=== PATIENT | male | born 1945 | race Caucasian/White ===

== ENCOUNTER 2017-05-10 11:02 | Day surgery (SDC) | payer OTHER ==
--- NOTE | 2017-05-10 11:19 | EDPHY ---
H & P Stated Complaint: cut finger with table saw Time Seen by Provider: 05/10/17 11:19 HPI/ROS: CHIEF COMPLAINT: Table saw injury right hand HISTORY OF PRESENT ILLNESS: The patient presents to the ED after table saw injury to his right hand. The patient experienced lacerations to his right index, 3rd and 4th fingers. The patient presents complaining of fairly severe pain. The patient has varying degrees of soft tissue injury. The patient denies any acute numbness. He reports his tetanus shot is up-to-date. REVIEW OF SYSTEMS: A comprehensive 10 point review of systems is otherwise negative aside from elements mentioned in the history of present illness. Source: Patient Exam Limitations: No limitations - Personal History Current Tetanus/Diphtheria Vaccine: Yes Current Tetanus Diphtheria and Acellular Pertussis (TDAP): Yes - Medical/Surgical History Hx Asthma: No Hx Chronic Respiratory Disease: No Hx Diabetes: No Hx Cardiac Disease: No Hx Renal Disease: No Hx Cirrhosis: No Hx Alcoholism: No Hx HIV/AIDS: No Hx Splenectomy or Spleen Trauma: No Other PMH: Past medical history: Noncontributory - Social History Smoking Status: Never smoked - Physical Exam Exam: General Appearance: Alert, no distress Head: Atraumatic Eyes: Pupils equal, round, reactive Neck: Nontender, trachea midline Respiratory: No chest wall tender, subcutaneous air, lungs clear bilaterally Cardiovascular: Regular rate and rhythm Abdomen: Abdomen is soft and nontender, pelvis stable Skin: No lacerations, No abrasion Back: No midline T/L/S pain Right hand: Various lacerations noted to the distal right 2nd 3rd and 4th fingers. Sensation was intact to light touch upon arrival. Normal capillary refill. The most extensive laceration soft tissue injuries to the 2nd finger. It is an oblique laceration down to the level of the D IP. The laceration is primarily on the volar surface of the finger but does extend onto the palmar surface. The lacerations of the 3rd and 4th fingers are also oblique in nature primarily on the volar surface of the finger. I am unable to fully flexion and extension at the digit secondary to the soft tissue injury. Constitutional: Initial Vital Signs Temperature (C) 36.5 C 05/10/17 11:04 Heart Rate 56 L 05/10/17 11:04 Respiratory Rate 16 05/10/17 11:04 Blood Pressure 153/79 H 05/10/17 11:04 O2 Sat (%) 96 05/10/17 11:04 O2 Delivery Mode Room Air Allergies/Adverse Reactions: No Known Allergies Allergy (Unverified 05/10/17 11:07) Medical Decision Making - Diagnostics EKG Interpretation: EKG: Complete interpretation has been separately recorded in the [facility] archive. Summary impression: Sinus rhythm, rate 55 Imaging Results: Imaging Impressions Hand X-Ray 05/10/17 11:25 Impression: Comminuted fractures and soft tissue injury involving the distal phalanges of the second, third, and fourth digits. ED Course/Re-evaluation: Patient presents to the ED with lacerations to his right 2nd 3rd and 4th fingers. Most extensive laceration is to the 2nd finger with fairly significant soft tissue loss. The patient denies additional complaints. His tetanus shot is up-to-date. The patient reported moderate to severe pain upon arrival. The patient did experience a vasovagal episode secondary to his pain. He had an IV established. He was placed on a playground monitor. I digitally blocked the patient's finger lacerations. He was taken for an x-ray which demonstrates fractures of the 2nd 3rd and 4th distal phalanxes. Consultation is made with Dr. Chiang who is on-call for Hand surgery. Given the complicated laceration/soft tissue loss involving the 2nd finger he will be taken to the operating room. Lacerations and fractures noted to the 3rd and 4th fingers which are open. The patient received 1 g of IV Ancef. He was kept npo. The patient is taken to the operating room for washout and debridement. Differential Diagnosis: Differential diagnosis considered includes open fracture, neurovascular injury, tendon laceration - Data Points Medications Given: Discontinued Medications Sodium Chloride (Ns) 1,000 mls @ 0 mls/hr IV EDNOW ONE; Wide Open PRN Reason: Protocol Stop: 05/10/17 11:27 Last Admin: 05/10/17 11:40 Dose: 1,000 mls Departure - Departure Disposition: To OP Cath/Surgery Clinical Impression: Fracture of phalanx,multiple sites, right hand, open, Vasovagal syncope Condition: Good
[2017-05-10] MEDS ORDERED: NS 1,000 ML IV ONE (11:26)
--- NOTE | 2017-05-10 11:36 | CPEKG ---
Heart Rate: 55 RR Interval: 1091 P-R Interval: 212 QRSD Interval: 114 QT Interval: 408 QTC Interval: 391 P [place]: 27 QRS [place]: 15 T Wave [place]: -2 EKG Severity - ABNORMAL ECG - EKG Impression: SINUS RHYTHM Electronically Signed By: Alexis Samson 10-May-2017 13:20:33
[2017-05-10] MEDS ORDERED: CEFAZOLIN 1 GM/DEXTROSE/50 ML BAG IV ONE ×2 (13:04→13:27)
[2017-05-10] MEDS ORDERED: BUPIVACAINE 0.25% 30 ML SDV ONE (13:12)
[2017-05-10] MEDS ORDERED: BACITRACIN 50,000 UNITS/10 ML SYR IRR ONE (13:16)
[2017-05-10] MEDS ORDERED: POLYMYXIN B SULFATE 500,000 UNIT/10 ML SYR IRR ONE (13:16)
[2017-05-10] MEDS ORDERED: MIDAZOLAM 2 MG/2 ML VIAL IVP ONE (13:20)
--- NOTE | 2017-05-10 13:20 | PDANEPAE ---
ANE History of Present Illness 71 yo for exploration s/p table saw injury ANE Past Medical History - Cardiovascular History Hx Hypertension: No Hx Arrhythmias: No Hx Chest Pain: No Hx Coronary Artery / Peripheral Vascular Disease: No Hx CHF / Valvular Disease: No Hx Palpitations: No - Pulmonary History Hx COPD: No Hx Asthma/Reactive Airway Disease: No Hx Recent Upper Respiratory Infection: No Hx Oxygen in Use at Home: No Hx Sleep Apnea: No - Endocrine History Hx Diabetes: No ANE Review of Systems Review of systems is: negative - Exercise capacity METS (RN): 4 METS ANE Patient History - Allergies Allergies/Adverse Reactions: No Known Allergies Allergy (Unverified 05/10/17 11:07) - NPO status NPO Since - Liquids (Date): 05/10/17 NPO Since - Liquids (Time): 07:00 NPO Since - Solids (Date): 05/10/17 NPO Since - Solids (Time): 10:00 - Smoking Hx Smoking Status: Never smoked ANE Labs/Vital Signs - Vital Signs Blood Pressure: 156/83 Heart Rate: 56 Respiratory Rate: 16 O2 Sat (%): 97 Height: 5 ft 7 in Weight: 79.379 kg ANE Physical Exam - Airway Neck exam: FROM Mallampati Score: Class 2 Mouth exam: normal dental/mouth exam - Pulmonary Pulmonary: no respiratory distress - Cardiovascular Cardiovascular: regular rate and rhythym - ASA Status ASA Status: I, E ANE Anesthesia Plan Anesthesia Plan: general endotracheal anesthesia
[2017-05-10] MEDS ORDERED: fentaNYL 100 MCG/2 ML INJ ONE ×2 (13:24→14:52)
[2017-05-10] MEDS ORDERED: PROPOFOL/EMULSION 500 MG/50 ML BOTTLE IV ONE (13:24)
[2017-05-10] MEDS ORDERED: ROCURONIUM 50 MG/5 ML VIAL ONE (13:25)
[2017-05-10] MEDS ORDERED: MIDAZOLAM 2 MG/2 ML VIAL ONE (13:26)
[2017-05-10] MEDS ORDERED: CEFAZOLIN 2 GM/DEXTROSE/100 ML BAG IV ONE (13:31)
[2017-05-10] MEDS ORDERED: ceFAZolin 1 GM/5 ML SYR ONE ×2 (13:37→14:36)
--- NOTE | 2017-05-10 13:56 | GHP ---
[f rep st] HISTORY AND PHYSICAL DATE OF ADMISSION: 05/10/2017 PREOPERATIVE DIAGNOSIS: Left 2nd, 3rd and 4th finger injuries with open fractures distal phalanges, nail matrix injuries, macerated lacerations. HISTORY OF PRESENT ILLNESS: Patient is a 71-year-old gentleman who was working with a table saw thi s morning. He was reaching for a piece of wood and somehow engaged the saw. The injuries were ruby re enough to have him come into the emergency room. Radiographs there showed open fractures of the 2nd, 3rd, 4th distal phalanges, all of which were somewhat comminuted and disorganized. The dorsal lacerations penetrated the nail matrices of all fingers. The 4th finger nail matrix injury was the most severe and most likely will have to be totally removed. The patient has some numbness over the tip of the radial border of the 2nd and 3rd fingers. ALLERGIES: None. MEDS: None. REVIEW OF SYSTEMS: Negative. PREVIOUS SURGERY: None. PHYSICAL EXAM: GENERAL: The patient alert, oriented, cooperative with exam. CHEST: Clear to ausc ultation. CARDIAC EXAMINATION: Regular rate and rhythm. ABDOMINAL EXAM: Nontender. Normal bowel sounds. EXTREMITIES: Capillary refill decreased in the 4th fingertip. Present in the 2nd and 3rd . Dorsal lacerations are noted through the nail matrices of all 3 fingers. ASSESSMENT: 2nd, 3rd, and 4th fingertip macerated lacerations with open fractures and nail matrix i njuries. PLAN: Patient will be taken to the operating room for repair of 2nd, 3rd and 4th fingertip injuries with debridement open fractures. Probable shortening, possible amputation of the 4th finger. [place] of nails and repair of nail matrices. The patient may require stabilization with K-wires. /[id number]/MODL
[2017-05-10] MEDS ORDERED: SUGAMMADEX SODIUM 200 MG/2 ML VIAL IVP ONE (14:50)
[2017-05-10] MEDS ORDERED: ONDANSETRON 4 MG/2 ML VIAL IVP PRN (15:06)
[2017-05-10] MEDS ORDERED: fentaNYL 100 MCG/2 ML INJ IVP PRN (15:06)
[2017-05-10] MEDS ORDERED: NALOXONE HCL 0.4 MG/ML INJ IVP PRN (15:06)
--- NOTE | 2017-05-10 15:42 | POSTANESTH ---
Post Anesthetic Evaluation Cardiovascular Status: Normal, Stable Respiratory Status: Tx Decrease in SpO2 Level of Consciousness/Mental Status: Mildly Sleepy, Arousable Pain Control: Adequate, Prn Tx Ordered Nausea/Vomiting Control: Adequate, Prn Tx Ordered Complications Possibly Related to Anesthesia: None Noted
[2017-05-10 18:14] VITALS: BP 148/91; PULSE 68; RESP 16; TEMP 98.2; O2SAT 93
--- NOTE | 2017-05-10 23:38 | GOP ---
[f rep st] OPERATIVE REPORT DATE OF OPERATION: 05/10/2017 SURGEON: Agusto Chiang MD ANESTHESIA: General. PREOPERATIVE DIAGNOSIS: 1. Partial amputation, left 4th finger. 2. Open fractures, left 2nd, 3rd, 4th finger distal phalanges. 3. Nail matrix injury, left 2nd, 3rd, and 4th fingers. 4. Complex lacerations, left 2nd, 3rd, 4th fingers. POSTOPERATIVE DIAGNOSIS: 1. Partial amputation, left 4th finger. 2. Open fractures, left 2nd, 3rd, 4th finger distal phalanges. 3. Nail matrix injury, left 2nd, 3rd, and 4th fingers. 4. Complex lacerations, left 2nd, 3rd, 4th fingers. PROCEDURE PERFORMED: 1. Partial amputation distal phalanx, left 4th finger. 2. Repair nail matrix, left 4th finger. 3. Repair nail matrix, left 3rd finger. 4. Repair nail matrix, left 2nd finger. 5. Debridement open fractures, left 2nd finger. 6. Debridement open fracture, left 3rd finger. 7. Debridement open fracture, left 4th finger. 8. Pinning distal phalangeal fracture, left 3rd finger. 9. Pinning distal phalangeal fractures, left 2nd finger. FINDINGS: DESCRIPTION OF PROCEDURE: Patient was taken to the operating room, administered general anesthesia. Placed in the supine position. The left upper extremity was prepped and draped in normal sterile fashion. Our attention was directed to the 4th finger, which had a complex open fracture. There wa s a partial amputation with bone loss of distal phalanx. There was a nail matrix injury. The macer ated skin edges were debrided. The open fracture was debrided and thoroughly lavaged. The remainin g nail matrix was then reapproximated with 6-0 Vicryl suture. The complex laceration was then reapp roximated with 5-0 nylon suture. The 3rd finger was then addressed. This had a complex saw blade laceration through the dorsum of th e finger and had partial missing bone. The bone was thoroughly debrided. The remaining nail was re moved. The nail matrix was macerated but still repairable. This was performed with a series of 6-0 Vicryl sutures. The eponychial folds were reapproximated with 5-0 nylon. The complex laceration w as reapproximated with a 5-0 nylon. The remaining fracture fragments were stabilized with a pin kiara lenard through the distal phalanx into the middle phalanx. The left 2nd finger was then addressed. The nail was removed. The complex laceration was debrided. The fracture was thoroughly debrided and lavaged. Bone fragments were removed. Skin edges were t rimmed and nail matrix was cleaned up. The nail matrix was then repaired with a 6-0 nylon suture. The fracture was pinned with a 0.035 pin. This was performed stabilizing 2 distal fracture segments in the phalanx and then approximating the fracture fragments to the middle phalanx. The pins were cut down to the appropriate length and pin protectors were placed. The complex laceration on the 2n d finger was reapproximated with 5-0 nylon suture. Sterile compression dressing was applied. The patient was placed into cage splints. He tolerated t he procedure well, was transferred back to Recovery in stable condition. COMPLICATIONS: None. /[id number]/MODL
== END 2017-05-10 18:00 | disposition home or self-care (01) ==
LOC: FSGY 12:40
PROVIDERS: ATTEND Orthopaedic Surgery Sports Medicine
PROC: 0PSV04Z Reposition Left Finger Phalanx with Internal Fixation Device, Open Approach (ICD-10-PCS; principal; 2017-05-10 12:25)
PROC: 0HQQXZZ Repair Finger Nail, External Approach (ICD-10-PCS; principal; 2017-05-10 12:25)
DX: S62.635B Displaced fracture of distal phalanx of left ring finger, initial encounter for open fracture (principal); S62.633B Displaced fracture of distal phalanx of left middle finger, initial encounter for open fracture; S62.631B Displaced fracture of distal phalanx of left index finger, initial encounter for open fracture; W31.2XXA Contact with powered woodworking and forming machines, initial encounter
CPT/HCPCS: C1713; J0690; J2250; J2704; J3010